=== PATIENT | female | born 1985 | race American Indian/Alaskan Native ===

== ENCOUNTER 2018-05-28 01:29 | Emergency (ER) | payer OTHER ==
--- NOTE | 2018-05-28 08:25 | OBHP ---
Datetime: 05/28/2018 08:18 IP Adm Impression: Term, intrauterine IP Admit Plan: Observation/Evaluation; Discharge home Admit Comment, IP Provider: Patient is a @ 39 wks with uterine contractions. patient denies wilber kaitlin, streak blood tinged mucous, + movement and contractions. Patient has a history of sickle c ell trait, no other antepartum issues, medical issues, previous surgeries, allergies, taking only pre vitamins. VE=2/50/-3, FHR = 125 mod janelle, +accels, no decels. Patient ruled out for labor and ch orio. Patient discharged home with labor precautions, f/u in office this week Pelvic Type - PN: Adequate Extremities - PN: Normal Abdomen - PN: Normal Back - PN: Normal Breast - PN: Normal Lungs - PN: Normal Heart - PN: Normal Thyroid - PN: Normal Neurologic - PN: Normal HEENT - PN: Normal General - PN: Normal FHR - Baseline A Provider: 125 EGA AdmitDate IP: 39.0 Vital Signs Provider: Reviewed; Within Normal Limits IP Chief Complaint: Uterine contractions NICHD Variability Prov Fetus A: Moderate 6-25bpm NICHD Accel Fetus A IP Provider: [id number] NICHD Decel Fetus A IP Provider: None Dilatation, Provider: 2 Effacement, Provider: 50 Station, Provider: -3 Genitourinary Exam: Normal DTRs - PN: Normal
--- NOTE | 2018-05-28 08:25 | OBDCSUM ---
Datetime: 05/28/2018 03:57 Discharged to, Provider: Home Follow up at, Provider: Dr. Kruger Disch Instr Activity: Normal activity Disch Instr Diet: Regular Discharge Diagnosis, Provider: Yosef Labor - Undelivered Discharge Time: 05/28/2018 04:00 Follow up in weeks, Provider: Cindy 05/29/2018 Disch Referrals: None
[2018-05-28 10:18] VITALS: BP 120/72; PULSE 83; RESP 18; TEMP 98.7; O2SAT 100
== END 2018-05-28 04:00 | disposition home or self-care (01) ==
LOC: H.EROB2 01:29
DX: O26.93 Pregnancy related conditions, unspecified, third trimester (principal); R10.2 Pelvic and perineal pain; Z3A.39 39 weeks gestation of pregnancy